=== PATIENT | male | born 1980 | race Caucasian/White ===

== ENCOUNTER 2016-06-12 07:09 | Emergency (ER) | payer OTHER ==
[2016-06-12 07:25] VITALS: BP 128/82
--- NOTE | 2016-06-12 08:06 | UC ---
Respiratory Complaint HPI - HPI Summary HPI Summary: The patient comes in today for: 1. Headache, cough, sore throat: Onset: 4 days ago. Palliative/provocative: Swallowing makes the sore throat worse. Quality: Soreness Region: Throat. Severity: 6/10 Time: Comes and goes. Associated symptoms: Rhinitis: None. Cough: Present, but non-productive. Frontal headache: present. Dyspnea: None. Chest pain: Burning in the upper airway with cough. * - History of Current Complaint Chief Complaint: UCRespiratory Stated Complaint: SORE THROAT,COUGH Time Seen by Provider: 06/12/16 07:48 Hx Obtained From: Patient - Allergies/Home Medications Allergies/Adverse Reactions: Allergies Allergy/AdvReac Type Severity Reaction Status Date / Time Naproxen Allergy Intermediate Hives Verified 06/12/16 07:18 Home Medications: Home Medications Dextromethorphan-Phenylephrine [Daytime Multi Symptom Col 10-5-325 mg] 2 cap PO BID PRN 06/12/16 [History Confirmed 06/12/16] PMH/Surg Hx/FS Hx/Imm Hx Previously Healthy: Yes Endocrine History Of: Denies: Diabetes, Thyroid Disease, Hyperthyroidism, Hypothyroidism, Dyslipidemia Cardiovascular History Of: Denies: Cardiac Disorders, Hypertension, Pacemaker/ICD, Myocardial Infarction , Congestive Heart Failure, Atrial Fibrillation, Deep Vein Thrombosis, Bleeding Disorders Respiratory History Of: Denies: COPD, Asthma, Bronchitis, Pneumonia, Pulmonary Embolism GI/ History Of: Denies: Gastroesophageal Reflux, Ulcer, Gastrointestinal Bleed, Gall Bladder Disease, Kidney Stones, Diverticulitis, Renal Disease, Urosepsis Neurological History Of: Denies: TIA, CVA, Dementia, Seizures, Migraine Psychological History Of: Denies: Anxiety, Depression, Bipolar Disorder, Schizophrenia, Post Traumatic Stress Disorder Cancer History Of: Denies: Lung Cancer, Colorectal Cancer, Breast Cancer, Prostate Cancer, Cervical Cancer Other History Of: Negative For: HIV, Hepatitis B, Hepatitis C, Anticoagulant Therapy - Surgical History Surgical History: Yes Surgery Procedure, Year, and Place: Right carpel tunnel. deviated septum repair - Family History Known Family History: Positive: Hypertension - Social History Occupation: Employed Full-time Alcohol Use: Occasionally Substance Use Type: None Smoking Status (MU): Former Smoker Type: Cigarettes When Did the Patient Quit Smoking/Using Tobacco: 18 months ago Household Exposure Type: Cigarettes - Immunization History Most Recent Influenza Vaccination: 2016 Review of Systems Constitutional: Negative Skin: Negative Eyes: Negative ENT: Sore Throat Respiratory: Negative Cardiovascular: Negative Gastrointestinal: Negative Genitourinary: Negative All Other Systems Reviewed And Are Negative: Yes Physical Exam Triage Information Reviewed: Yes Appearance: Well-Appearing, No Pain Distress, Well-Nourished Vital Signs: Initial Vital Signs Temp 98.2 F 06/12/16 07:20 Pulse 105 06/12/16 07:20 Resp 20 06/12/16 07:20 BP 128/82 06/12/16 07:20 Pulse Ox 99 06/12/16 07:20 Vital Signs Reviewed: Yes Eyes: Positive: Conjunctiva Clear. Negative: Discharge ENT: Positive: Hearing grossly normal, Muffled/hoarse voice. Negative: Pharyngeal erythema, Nasal congestion, Nasal drainage, TM bulging, TM dull, TM red, Tonsillar swelling, Tonsillar exudate Dental: Negative: Gross Decay/Caries @, Dental Fracture @ Neck: Positive: Supple, Nontender, No Lymphadenopathy. Negative: Nuchal Rigidity Respiratory: Positive: Lungs clear, No respiratory distress, No accessory muscle use. Negative: Crackles, Wheezing Cardiovascular: Positive: RRR, No Murmur Abdomen Description: Positive: Nontender, No Organomegaly, Soft. Negative: Distended, Guarding, Peritoneal Signs Musculoskeletal: Positive: Strength Intact, ROM Intact, No Edema Neurological: Positive: Alert, Muscle Tone Normal Psychological: Positive: Age Appropriate Behavior, Consolable Skin: Negative: rashes, breakdown UC Diagnostic Evaluation - Laboratory O2 Sat by Pulse Oximetry: 99 Respiratory Course/Dx - Course Course Of Treatment: The patient was told that he appears to have an upper respiratory viral infection and that antibotics are not thought to have much benefit and may complicate his recovery. HE was told that they may be helpful particularly if his symptoms continue and he develops purulent nasal symptoms or similarly a cough. He wanted an antibiotic anyway. - Differential Dx/Diagnosis Provider Diagnoses: upper respiratory infection. Discharge - Discharge Plan Condition: Stable Disposition: HOME Prescriptions: Azithromycin TAB* [Zithromax TAB (Z-ISABEL) 250 mg #6 tabs] 250 mg PO DAILY #6 tab Patient Education Materials: Upper Respiratory Infection (ED), Viral Syndrome ( ED) Referrals: Jacoby Chavez MD [Primary Care Provider] - 1 Week (Please see your primary care provider in about a week to see how well you are doing. If you get worse, please be seen sooner.)
== END 2016-06-12 08:27 | disposition home or self-care (01) ==
LOC: UCCORT 07:09
DX: J06.9 Acute upper respiratory infection, unspecified (principal); Z87.891 Personal history of nicotine dependence; Z88.6 Allergy status to analgesic agent
CPT/HCPCS: 99212; G0463

== ENCOUNTER 2018-06-03 16:48 | Emergency (ER) | payer BC, OTHER ==
[2018-06-03 17:13] VITALS: BP 165/90
--- NOTE | 2018-06-03 17:21 | UC ---
Skin Complaint HPI - HPI Summary HPI Summary: Pt c/o of worsening eye redness, skin erythema, swelling and tenderness around eye and tender "lump" under right eye X 4 days. - History of Current Complaint Chief Complaint: UCEye Time Seen by Provider: 06/03/18 17:12 Stated Complaint: RIGHT EYE CONCERN Hx Obtained From: Patient Onset/Duration: Gradual Onset, Lasting Days, Still Present Skin Exposure Onset/Duration: Days Ago Timing: Constant Onset Severity: Mild Current Severity: Mild Pain Intensity: 5 Location: Discrete, Face Character: Swelling, Pain, Redness, Painful Aggravating Factor(s): Touch Alleviating Factor(s): Nothing Associated Signs & Symptoms: Positive: Tenderness - Allergy/Home Medications Allergies/Adverse Reactions: Allergies Allergy/AdvReac Type Severity Reaction Status Date / Time naproxen Allergy Intermediate Hives Verified 06/03/18 17:14 PMH/Surg Hx/FS Hx/Imm Hx Previously Healthy: Yes Other History Of: Negative For: HIV, Hepatitis B, Hepatitis C, Anticoagulant Therapy - Surgical History Surgical History: Yes Surgery Procedure, Year, and Place: Right carpel tunnel. deviated septum repair - Family History Known Family History: Positive: Hypertension - Social History Occupation: Employed Full-time Lives: With Family Alcohol Use: Occasionally Substance Use Type: None Smoking Status (MU): Former Smoker Type: Cigarettes Have You Smoked in the Last Year: No When Did the Patient Quit Smoking/Using Tobacco: 18 months ago Household Exposure Type: Cigarettes - Immunization History Most Recent Influenza Vaccination: 2015 Review of Systems All Other Systems Reviewed And Are Negative: Yes Constitutional: Positive: Negative Skin: Positive: Other - swelling, erythema Eyes: Positive: Eye Redness ENT: Positive: Negative Respiratory: Positive: Negative Cardiovascular: Positive: Negative Gastrointestinal: Positive: Negative Genitourinary: Positive: Negative Motor: Positive: Negative Neurovascular: Positive: Negative Musculoskeletal: Positive: Negative Neurological: Positive: Negative Psychological: Positive: Negative Is Patient Immunocompromised?: No Physical Exam Triage Information Reviewed: Yes Appearance: Pain Distress Vital Signs: Initial Vital Signs Temp 98.2 F 06/03/18 17:10 Pulse 92 06/03/18 17:10 Resp 16 06/03/18 17:10 BP 165/90 06/03/18 17:10 Pulse Ox 99 06/03/18 17:10 Vital Signs Reviewed: Yes Eyes: Positive: Other: - right eye sceleritis ENT Exam: Normal Dental Exam: Normal Neck exam: Normal Respiratory Exam: Normal Respiratory: Positive: No respiratory distress Musculoskeletal Exam: Normal Neurological Exam: Normal Psychological Exam: Normal Skin Exam: Other - mild swelling around right eye, small pea size, soft, moveable tender mass right innder lower eye lid with dried scab, skin is erythematous. pt c/o tenderness, denies discharge Course/Dx - Differential Diagnoses - Skin Complaint Differential Diagnoses: Abscess, Cellulitis, Other - conjunctivitis - Diagnoses Provider Diagnosis: Cellulitis of right lower eyelid Discharge - Sign-Out/Discharge Documenting (check all that apply): Patient Departure All imaging exams completed and their final reports reviewed: No Studies - Discharge Plan Condition: Stable Disposition: HOME Prescriptions: Cephalexin CAP* [Keflex 500 CAP*] 500 mg PO Q8H #21 cap Patient Education Materials: Cellulitis (ED), Periorbital Cellulitis in Adults (ED) Referrals: [facility] [Outside] - If Needed No Primary Care Phys,NOPCP [Primary Care Provider] - - Billing Disposition and Condition Condition: STABLE Disposition: Home
== END 2018-06-03 17:29 | disposition home or self-care (01) ==
LOC: UCCORT 16:48
DX: H00.032 Abscess of right lower eyelid (principal); Z88.6 Allergy status to analgesic agent; Z87.891 Personal history of nicotine dependence
CPT/HCPCS: 99212; G0463

== ENCOUNTER 2019-04-05 09:51 | Emergency (ER) | payer BC ==
[2019-04-05 11:29] VITALS: BP 136/90
--- NOTE | 2019-04-05 11:35 | UC ---
Respiratory Complaint HPI - HPI Summary HPI Summary: The patient has had cough and cold symptoms for approximately 2 weeks which were improving and then he was cleaning out a moldy basement and started having symptoms again and worsening cough. He's unsure whether he is a fever however he states at night he will have cold sweats. - History of Current Complaint Chief Complaint: UCRespiratory Stated Complaint: COUGH Time Seen by Provider: 04/05/19 11:19 Hx Obtained From: Patient Onset/Duration: Gradual Onset, Lasting Weeks Timing: Intermittent Episodes Severity Initially: Mild Severity Currently: Moderate Pain Intensity: 0 Character: Cough: Nonproductive Aggravating Factors: Other - Patient did work in a multi basement cleaning it out and feels that his symptoms worsen since then. Alleviating Factors: Nothing Associated Signs And Symptoms: Positive: Fever - Patient thinks he may have had a fever because he has cold sweats at night., URI, Nasal Congestion - Allergies/Home Medications Allergies/Adverse Reactions: Allergies Allergy/AdvReac Type Severity Reaction Status Date / Time naproxen Allergy Intermediate Hives Verified 04/05/19 11:26 Home Medications: Home Medications Benzonatate CAP* [Tessalon 100 MG CAP*] 100 mg PO TID PRN 04/05/19 [History Confirmed 04/05/19] methylPREDNISolone [Medrol Dosepak 4 MG*] 0 mg PO .SEE ISABEL INSTRUCTION 04/05/19 [History Confirmed 04/05/19] PMH/Surg Hx/FS Hx/Imm Hx Previously Healthy: Yes Other History Of: Negative For: HIV, Hepatitis B, Hepatitis C, Anticoagulant Therapy - Surgical History Surgical History: Yes Surgery Procedure, Year, and Place: Right carpel tunnel. deviated septum repair - Family History Known Family History: Positive: Hypertension - Social History Occupation: Employed Full-time Alcohol Use: Occasionally Substance Use Type: None Smoking Status (MU): Former Smoker Type: Cigarettes Have You Smoked in the Last Year: No When Did the Patient Quit Smoking/Using Tobacco: 2016 Household Exposure Type: Cigarettes - Immunization History Most Recent Influenza Vaccination: 2016 Review of Systems All Other Systems Reviewed And Are Negative: Yes Constitutional: Positive: Fever ENT: Positive: Nasal Discharge Respiratory: Positive: Cough Is Patient Immunocompromised?: No Physical Exam Triage Information Reviewed: Yes Appearance: Well-Appearing, No Pain Distress, Well-Nourished Vital Signs: Initial Vital Signs Temp 98.4 F 04/05/19 11:24 Pulse 108 04/05/19 11:24 Resp 18 04/05/19 11:24 BP 136/90 04/05/19 11:24 Pulse Ox 99 04/05/19 11:24 Vital Signs Reviewed: Yes Eyes: Positive: Conjunctiva Clear ENT: Positive: Pharynx normal, Nasal drainage - Clear nasal coryza., TMs normal , Uvula midline Neck: Positive: Supple, Nontender, No Lymphadenopathy Respiratory: Positive: No respiratory distress, No accessory muscle use, Rhonchi - Patient has been "pop" right lower lobe posteriorly with good air movement.. Negative: Wheezing Cardiovascular: Positive: RRR, No Murmur, Pulses Normal, Brisk Capillary Refill Musculoskeletal Exam: Normal Neurological Exam: Normal Psychological Exam: Normal Skin Exam: Normal Respiratory Course/Dx - Course Course Of Treatment: Chest x-ray:Indication: Cough. 2 views of the chest including dual energy PA views demonstrate no mediastinal shift. Airspace disease in the right base consistent with right middle lobe pneumonia is noted. Left lung field is clear. IMPRESSION: Right middle lobe pneumonia. The patient was given a DuoNeb treatment with improvement in aeration. He is to follow-up with his primary care provider, to call today and make an appointment for a recheck or sooner if any worsening symptoms. - Differential Dx/Diagnosis Provider Diagnosis: RML pneumonia Discharge ED - Sign-Out/Discharge Documenting (check all that apply): Patient Departure All imaging exams completed and their final reports reviewed: Yes - Discharge Plan Condition: Fair Disposition: HOME Prescriptions: DOXYcycline CAP(*) [DOXYcycline 100MG CAP(*)] 100 mg PO BID 10 Days #20 cap Patient Education Materials: Pneumonia (ED) Forms: *Work Release Referrals: Jacoby Chavez MD [Primary Care Provider] - Additional Instructions: Increase fluids, no antacids, multivitamins or dairy products 2 hours before you take doxycycline and 2 hours after however he needs take it with food. Call Dr. espinoza and make an appointment for further follow-up for a recheck to make sure the pneumonia has cleared. - Billing Disposition and Condition Condition: FAIR Disposition: Home - Attestation Statements Provider Attestation: I was available for consult. This patient was seen by the EVERARDO. The patient was not presented to, seen by, or examined by me. -Tony
[2019-04-05] MEDS ORDERED: Albuterol/Ipratropium NEB.SOL* Albuterol 2.5 MG/Ipratropium 0.5 MG 3 ML INH ONE (11:42)
== END 2019-04-05 12:35 | disposition home or self-care (01) ==
LOC: UCCORT 09:51
DX: J18.1 Lobar pneumonia, unspecified organism (principal); R09.81 Nasal congestion; Z88.8 Allergy status to other drugs, medicaments and biological substances; Z87.891 Personal history of nicotine dependence
CPT/HCPCS: 71046; 99212; A9270-GY; G0463